=== PATIENT | female | born 1960 | race African-American/Black ===

== ENCOUNTER 2017-02-03 09:31 | Emergency (ER) | payer OTHER ==
[~2017-02-03 09:31] MED LIST: LISI-338 PO; WARF4TAB7 PO
--- NOTE | 2017-02-03 09:35 | PHYS DOC ---
Past Medical History Past Medical History: Gallstones Additional Past Medical Histor: cancer ( pt reports in in remission) Past Surgical History: Other Additional Past Surgical Histo: gallstones, liver biopsy, spleen surgery Alcohol Use: None Drug Use: None Adult General Chief Complaint Chief Complaint: ABNORMAL LABS [facility] HPI Patient is a 56 year old patient presenting to the emergency department for evaluation of a variety of complaints including abnormal INR left ear pain left ear itching left facial pain and right rib pain dizziness headache and not feeling well. I asked her what her primary reason for coming to the emergency department today is she says that it is her INR being abnormal but she wanted to be seen for all of the above symptoms as well. Ear facial issues have been going on for the past week and she felt that it is worse today. She thinks that she may have an ear infection but she is having no fevers chills nausea vomiting or other systemic symptoms. Right rib pain has been going on for 2 days and she says it hurts worse when she takes a deep breath moves her torso or palpates her rib cage. Dizziness and sensation that she feels lightheaded when she stands up or moves around. Not feeling well is vague and says he just feels that she is more tired. She denies any chest pain shortness of breath diaphoresis diarrhea. 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 Her vital signs are normal including a normal oxygen saturation and normal heart rate. Review of Systems Review of Systems Constitutional: Denies fever or chills [] Eyes: Denies change in visual acuity, redness, or eye pain [] HENT: Denies nasal congestion or sore throat [] Respiratory: Denies cough or shortness of breath [] Cardiovascular: No additional information not addressed in HPI [] GI: Denies abdominal pain, nausea, vomiting, bloody stools or diarrhea [] : Denies dysuria or hematuria [] Musculoskeletal: Denies back pain or joint pain [] Integument: Denies rash or skin lesions [] Neurologic: Denies headache, focal weakness or sensory changes [] Endocrine: Denies polyuria or polydipsia [] Current Medications Current Medications Current Medications Medications (Trade) Dose Ordered Sig/Ned Start Time Stop Time Status Last Admin Dose Admin Enoxaparin Sodium (Lovenox 80mg Syringe) 80 mg 1X ONCE 02/03/17 11:00 02/03/17 11:01 Allergies Allergies Allergies Coded Allergies Type Severity Reaction Last Updated Verified Iodinated Contrast Media - IV Dye Allergy Intermediate hives 09/29/14 Yes cephalexin Allergy Intermediate itch 09/29/14 Yes Penicillins Allergy Unknown 04/23/16 Yes Physical Exam Physical Exam Constitutional: Well developed, well nourished, no acute distress, non-toxic appearance. [] HENT: Normocephalic, atraumatic, bilateral external ears normal, oropharynx moist, no oral exudates, nose normal. [] Eyes: PERRLA, EOMI, conjunctiva normal, no discharge. [] Neck: Normal range of motion, no tenderness, supple, no stridor. [] Cardiovascular:Heart rate regular rhythm, no murmur [] Lungs & Thorax: Bilateral breath sounds clear to auscultation [] Abdomen: Bowel sounds normal, soft, no tenderness, no masses, no pulsatile masses. [] Skin: Warm, dry, no erythema, no rash. [] Back: No tenderness, no CVA tenderness. [] Extremities: No tenderness, no cyanosis, no clubbing, ROM intact, no edema. [] Neurologic: Alert and oriented X 3, normal motor function, normal sensory function, no focal deficits noted. [] Psychologic: Affect normal, judgement normal, mood normal. [] Current Patient Data Vital Signs Vital Signs Date Time Temp Pulse Resp B/P (MAP) Pulse Ox O2 Delivery O2 Flow Rate FiO2 02/03/17 09:47 98.2 78 16 142/85 (104) 95 Room Air 98.2 Lab Values Laboratory Tests Test 02/03/17 09:46 02/03/17 10:03 Urine Collection Type Void Urine Color Yellow Urine Clarity Clear Urine pH 6.0 Urine Specific [place] 1.010 Urine Protein Negative mg/dL (NEG-TRACE) Urine Glucose (UA) Negative mg/dL (NEG) Urine Ketones (Stick) Negative mg/dL (NEG) Urine Blood Trace (NEG) Urine Nitrite Negative (NEG) Urine Bilirubin Negative (NEG) Urine Urobilinogen Dipstick 0.2 mg/dL (0.2 mg/dL) Urine Leukocyte Esterase Small (NEG) Urine RBC Occ /HPF (0-2) Urine WBC Rare /HPF (0-4) Urine Squamous Epithelial Cells Few /LPF Urine Bacteria 0 /HPF (0-FEW) White Blood Count 5.7 x10^3/uL (4.0-11.0) Red Blood Count 4.68 x10^6/uL (3.50-5.40) Hemoglobin 11.5 g/dL (12.0-15.5) L Hematocrit 35.9 % (36.0-47.0) L Mean Corpuscular Volume 77 fL (79-100) L Mean Corpuscular Hemoglobin 25 pg (25-35) Mean Corpuscular Hemoglobin Concent 32 g/dL (31-37) Red Cell Distribution Width 15.0 % (11.5-14.5) H Platelet Count 214 x10^3/uL (140-400) Neutrophils (%) (Auto) 58 % (31-73) Lymphocytes (%) (Auto) 31 % (24-48) Monocytes (%) (Auto) 7 % (0-9) Eosinophils (%) (Auto) 3 % (0-3) Basophils (%) (Auto) 1 % (0-3) Neutrophils # (Auto) 3.3 x10^3uL (1.8-7.7) Lymphocytes # (Auto) 1.8 x10^3/uL (1.0-4.8) Monocytes # (Auto) 0.4 x10^3/uL (0.0-1.1) Eosinophils # (Auto) 0.2 x10^3/uL (0.0-0.7) Basophils # (Auto) 0.1 x10^3/uL (0.0-0.2) Prothrombin Time 13.2 SEC (11.7-14.0) Prothrombin Time INR 1.1 (0.8-1.1) Sodium Level 146 mmol/L (136-145) H Potassium Level 4.0 mmol/L (3.5-5.1) Chloride Level 109 mmol/L (98-107) H Carbon Dioxide Level 29 mmol/L (21-32) Anion Gap 8 (6-14) Blood Urea Nitrogen 11 mg/dL (7-20) Creatinine 0.8 mg/dL (0.6-1.0) Estimated GFR (Cockcroft-Gault) 90.1 BUN/Creatinine Ratio 14 (6-20) Glucose Level 106 mg/dL (70-99) H Calcium Level 9.2 mg/dL (8.5-10.1) Magnesium Level 1.9 mg/dL (1.8-2.4) Total Bilirubin 0.4 mg/dL (0.2-1.0) Aspartate Amino Transferase (AST) 19 U/L (15-37) Alanine Aminotransferase (ALT) 31 U/L (14-59) Alkaline Phosphatase 95 U/L (46-116) Total Protein 7.5 g/dL (6.4-8.2) Albumin 3.9 g/dL (3.4-5.0) Albumin/Globulin Ratio 1.1 (1.0-1.7) Laboratory Tests 02/03/17 10:03 Laboratory Tests 02/03/17 10:03 EKG EKG [] Radiology/Procedures Radiology/Procedures Examination: 2 views of the chest. History: History of right lateral rib pain for 2 days. comparison: 02/20/2011 Findings: The cardiomediastinal silhouette grossly appears unremarkable. There is no acute infiltrate or visualize pneumothorax. Impression: No acute cardiopulmonary findings. DICTATED and SIGNED BY: SENG BENSON MD DATE: 02/03/17 1013 Course & Med Decision Making Course & Med Decision Making Patient with odd constellation of complaints which I do not think are related to each other. I do not suspect pulmonary embolism or DVT at this time as her vitals are completely normal. She thinks that she may have missed a dose or 2 of her warfarin but will not confirm this. Patient given a Lovenox shot here and told to take her warfarin as she is prescribed. He has a follow-up planned with her primary care provider tomorrow so told her to keep this. Her ear pain and other complaints I will treat her as an ear effusion as there is no signs of an ear infection. Patient will be told to take Nasonex Benadryl and [place] for breakthrough pain. Patient aware and agreeable with plan for discharge and verbalized understanding of the need for follow-up tomorrow with her PCP and to come back to the ER sooner with any worsening pain shortness of breath or other general concerns. Dragon Disclaimer Dragon Disclaimer This electronic medical record was generated, in whole or in part, using a voice recognition dictation system. Departure Departure Impression: Primary Impression: Subtherapeutic anticoagulation Additional Impressions: Costochondritis, acute Ear ache Disposition: HOME, SELF-CARE Condition: GOOD Referrals: NON,STAFF (PCP) Patient Instructions: Costochondritis Additional Instructions: YOUR INR WAS 1.1 TODAY. TAKE YOUR COUMADIN PRESCRIBED. FOLLOW WITH YOUR PCP TOMORROW AND COME BACK TO THE ED SOONER WITH ANY NEW OR WORSENING PAIN, SOA , OR OTHER GENERAL CONCERNS. FOR THE EAR PAIN, TAKE OTC BENADRYL AND NASONEX. Scripts Hydrocodone/Apap 5-325 (NORCO 5-325 TABLET) 1 Each Tablet 1 TAB PO PRN Q6HRS Y for PAIN, #14 TAB 0 Refills Prov: COOKIE GREWAL DO 02/03/17 Problem Qualifiers COOKIE GREWAL DO Feb 03, 2017 09:35
[2017-02-03 10:12] LABS: BASO # 0.1 x10^3/uL (0.0-0.2); BASO % 1 % (0-3); EOS % 3 % (0-3); HEMATOCRIT 35.9 % (36.0-47.0); HEMOGLOBIN 11.5 g/dL (12.0-15.5); LYMPH # 1.8 x10^3/uL (1.0-4.8); LYMPH % 31 % (24-48); MEAN CORPUSCULAR HEMOGLOBIN 25 pg (25-35); MEAN CORPUSCULAR HGB CONC 32 g/dL (31-37); MEAN CORPUSCULAR VOLUME 77 fL (79-100); MONO % 7 % (0-9); NEUT % 58 % (31-73); PLATELET COUNT 214 x10^3/uL (140-400); RED BLOOD COUNT 4.68 x10^6/uL (3.50-5.40); WHITE BLOOD COUNT 5.7 x10^3/uL (4.0-11.0)
[2017-02-03 10:17] LABS: BILIRUBIN,URINE NEGATIVE (NEG); GLUCOSE,URINE NEGATIVE (NEG); NITRITE,URINE NEGATIVE (NEG); PROTEIN,URINE NEGATIVE (NEG-TRACE); UROBILINOGEN,URINE 0.2 mg/dL (0.2 mg/dL)
--- NOTE | 2017-02-03 10:17 | RAD ---
Examination: 2 views of the chest. History: History of right lateral rib pain for 2 days. comparison: 02/20/2011 Findings: The cardiomediastinal silhouette grossly appears unremarkable. There is no acute infiltrate or visualize pneumothorax. Impression: No acute cardiopulmonary findings.
[2017-02-03 10:22] LABS: INR 1.1 (0.8-1.1); PROTHROMBIN TIME PATIENT 13.2 SEC (11.7-14.0)
[2017-02-03 10:26] LABS: CALCIUM 9.2 mg/dL (8.5-10.1); CREATININE 0.8 mg/dL (0.6-1.0); GFR 90.1
[2017-02-03 10:32] LABS: BACTERIA,URINE 0 /HPF (0-FEW); RBC,URINE OCC /HPF (0-2); SQUAMOUS EPITHELIAL CELL,UR FEW /LPF; WBC,URINE RARE /HPF (0-4)
[2017-02-03 10:34] LABS: ALBUMIN 3.9 g/dL (3.4-5.0); ALBUMIN/GLOBULIN RATIO 1.1 (1.0-1.7); MAGNESIUM 1.9 mg/dL (1.8-2.4); TOTAL BILIRUBIN 0.4 mg/dL (0.2-1.0); TOTAL PROTEIN 7.5 g/dL (6.4-8.2)
[2017-02-03] MEDS ORDERED: HYDR-971 PO (10:57)
[2017-02-03 11:00] VITALS: BP 143/69
== END 2017-02-03 11:00 | disposition home or self-care (01) ==
LOC: ER 09:31
DX: R79.1 Abnormal coagulation profile (principal); M94.0 Chondrocostal junction syndrome [Tietze]; H92.02 Otalgia, left ear; R51 Headache; Z86.718 Personal history of other venous thrombosis and embolism; Z79.01 Long term (current) use of anticoagulants; Z88.0 Allergy status to penicillin; Z88.1 Allergy status to other antibiotic agents; Z91.041 Radiographic dye allergy status
CPT/HCPCS: 36415; 71020; 80053; 81001; 83735; 85027; 85610; 87086; 96372; 99285; J1650

== ENCOUNTER 2020-07-12 12:05 | Emergency (ER) | payer OTHER ==
[~2020-07-12] VITALS: Ht 165.1 cm; Wt 86.2 kg
[~2020-07-12 12:05] MED LIST changes: +HYDR-3164 PO; +WARF4TAB64 PO; -WARF4TAB7 PO
[2020-07-12] MEDS ORDERED: ACETAMINOPHEN 500 MG TABLET PO ONE (13:00)
[2020-07-12] MEDS ORDERED: DEXAMETHASONE 4 MG TABLET PO ONE (13:00)
[2020-07-12 13:51] LABS: INFLUENZA A PATIENT NEGATIVE (NEGATIVE); INFLUENZA B PATIENT NEGATIVE (NEGATIVE)
[2020-07-12] MEDS ORDERED: BUTA1TAB23 PO (14:50)
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
--- NOTE | 2020-07-12 14:51 | RAD ---
Single view chest dated 07/12/2020. Comparison made to 02/03/2017. CLINICAL INDICATION: Cough and fever. FINDINGS: Single upright portable exam performed. Heart and mediastinal contours are stable. Lungs are clear. N o consolidation or pleural effusion. No pneumothorax. IMPRESSION: No acute radiographic abnormality. Electronically signed by: Monty Valenzuela MD (07/12/2020 2:48 PM) [id number]
[2020-07-12 14:55] VITALS: BP 112/49
[2020-07-15] MEDS ORDERED: MV-M1TAB7 PO (05:39)
[2020-07-15] MEDS ORDERED: ATOR20TA58 PO (05:39)
[2020-07-15] MEDS ORDERED: ASPI-886 PO (05:39)
== END 2020-07-12 15:02 | disposition home or self-care (01) ==
LOC: ER 12:05
DX: R51.9 Headache, unspecified (principal); Z20.828 Contact with and (suspected) exposure to other viral communicable diseases; R05 Cough; Z86.718 Personal history of other venous thrombosis and embolism; Z88.0 Allergy status to penicillin; Z88.1 Allergy status to other antibiotic agents
CPT/HCPCS: 71045; 87804; 99285; C9803; U0003